=== PATIENT | female | born 1990 | race American Indian/Alaskan Native ===

== ENCOUNTER 2016-12-31 15:08 | Emergency (ER) | payer OTHER ==
[2016-12-31 15:16] VITALS: BP 107/64
--- NOTE | 2016-12-31 15:22 | Emergency Department Report ---
Entered by JUAN GANDHI, acting as scribe for DIMITRIOS SERNA NP. Chief Complaint: Skin/Abscess/Foreign Body Stated Complaint: SORE ON TAILBONE Time Seen by Provider: 12/31/16 15:13 - HPI History of Present Illness: 26 y/o female presents with boil on her sacral region that she noticed about 4 days ago. LMP was about 3-4 weeks ago per pt. Sx include mild drainage from area. - ROS Review of Systems: +boil to sacral region +mild drainage - Exam Vital Signs: Vital Signs 12/31/16 15:13 Temperature 97.8 F Pulse Rate 71 Respiratory 16 Rate Blood Pressure 107/64 O2 Sat by Pulse 100 Oximetry Physical Exam: a and o x4, oriented with a steady gait MSE screening note: Focused history and physical exam performed. Due to findings the following was ordered: lab ED Disposition for MSE Condition: Stable This documentation as recorded by the scribeOKSANA RYAN,accurately reflects the service I personally performed and the decisions made by DAPHNE mcclain TRACY M , CHRISTINA.
[2016-12-31] MEDS ORDERED: BOOSTRIX IM ONE (20:47)
[2016-12-31] MEDS ORDERED: MOTRIN PO ONE (20:47)
--- NOTE | 2016-12-31 20:49 | Emergency Department Report ---
- General Chief complaint: Skin/Abscess/Foreign Body Stated complaint: SORE ON TAILBONE Time Seen by Provider: 12/31/16 15:13 Source: patient Mode of arrival: Ambulatory Limitations: No Limitations - History of Present Illness Initial comments: This is a 26-year-old female nontoxic, well nourished in appearance, no acute signs of distress the best the ED complaining of boil to the upper buttock region 4 days. Patient stated the boil has been draining with pus the past 2 days. Patient denies any numbness, tingling, chest pain, fever, chills, headache, stiff neck, nausea or vomiting. Denies past medical history or drug allergies. MD complaint: abscess/boil -: Gradual, days(s) (4) Tetanus Up to Date: unsure Location: buttocks Severity: mild Severity scale (0 -10): 8 Quality: aching Consistency: constant Context: none Associated symptoms: denies other symptoms - Related Data Previous Rx's Medication Instructions Recorded Last Taken Type Amoxicillin/K Clav Tab [Augmentin 1 tab PO Q12HR #14 tab 12/31/16 Unknown Rx 875 mg] Ibuprofen [Motrin 600 MG tab] 600 mg PO Q8H PRN #30 tablet 12/31/16 Unknown Rx Allergies Allergy/AdvReac Type Severity Reaction Status Date / Time No Known Allergies Allergy Verified 12/31/16 15:16 Abscess Boil HPI - HPI Chief Complaint: Skin/Abscess/Foreign Body Stated Complaint: SORE ON TAILBONE Time Seen by Provider: 12/31/16 15:13 Home Medications: Previous Rx's Medication Instructions Recorded Last Taken Type Amoxicillin/K Clav Tab [Augmentin 1 tab PO Q12HR #14 tab 12/31/16 Unknown Rx 875 mg] Ibuprofen [Motrin 600 MG tab] 600 mg PO Q8H PRN #30 tablet 12/31/16 Unknown Rx Allergies/Adverse Reactions: Allergies Allergy/AdvReac Type Severity Reaction Status Date / Time No Known Allergies Allergy Verified 12/31/16 15:16 ED Review of Systems ROS: Stated complaint: SORE ON TAILBONE Other details as noted in HPI Constitutional: denies: chills, fever Eyes: denies: eye pain, eye discharge, vision change ENT: denies: ear pain, throat pain Respiratory: denies: cough, shortness of breath, wheezing Cardiovascular: denies: chest pain, palpitations Endocrine: no symptoms reported Gastrointestinal: denies: abdominal pain, nausea, diarrhea Genitourinary: denies: urgency, dysuria, discharge Musculoskeletal: denies: back pain, joint swelling, arthralgia Skin: denies: rash, lesions Neurological: denies: headache, weakness, paresthesias Psychiatric: denies: anxiety, depression Hematological/Lymphatic: denies: easy bleeding, easy bruising ED Past Medical Hx - Past Medical History Previous Medical History?: No - Surgical History Past Surgical History?: No - Social History Smoking Status: Current Some Day Smoker Substance Use Type: None - Medications Home Medications: Home Medications Medication Instructions Recorded Confirmed Last Taken Type Amoxicillin/K Clav Tab [Augmentin 1 tab PO Q12HR #14 tab 12/31/16 Unknown Rx 875 mg] Ibuprofen [Motrin 600 MG tab] 600 mg PO Q8H PRN #30 tablet 12/31/16 Unknown Rx ED Physical Exam - General Limitations: No Limitations General appearance: alert, in no apparent distress - Head Head exam: Present: atraumatic, normocephalic, normal inspection - Eye Eye exam: Present: normal appearance, PERRL, EOMI. Absent: scleral icterus, conjunctival injection, nystagmus, periorbital swelling, periorbital tenderness Pupils: Present: normal accommodation - ENT ENT exam: Present: normal exam, normal orophraynx, mucous membranes moist, TM's normal bilaterally, normal external ear exam - Neck Neck exam: Present: normal inspection, full ROM. Absent: tenderness, meningismus, lymphadenopathy, thyromegaly - Respiratory Respiratory exam: Present: normal lung sounds bilaterally. Absent: respiratory distress, wheezes, rales, rhonchi, stridor, chest wall tenderness, accessory muscle use, decreased breath sounds, prolonged expiratory - Cardiovascular Cardiovascular Exam: Present: regular rate, normal rhythm, normal heart sounds. Absent: bradycardia, tachycardia, irregular rhythm, systolic murmur, diastolic murmur, rubs, gallop - GI/Abdominal GI/Abdominal exam: Present: soft, normal bowel sounds. Absent: distended, tenderness, guarding, rebound, rigid, diminished bowel sounds - Rectal Rectal exam: Present: deferred - Extremities Exam Extremities exam: Present: normal inspection, full ROM, normal capillary refill. Absent: tenderness, pedal edema, joint swelling, calf tenderness - Back Exam Back exam: Present: normal inspection, full ROM. Absent: tenderness, CVA tenderness (R), CVA tenderness (L), muscle spasm, paraspinal tenderness, vertebral tenderness, rash noted - Neurological Exam Neurological exam: Present: alert, oriented X3, CN II-XII intact, normal gait, reflexes normal - Psychiatric Psychiatric exam: Present: normal affect, normal mood - Skin Skin exam: Present: warm, dry, intact, normal color. Absent: rash - Other Other exam information: 1 cm boil with pus and drainage noted. No induration noted. Nonfluctuant. Tender to touch. Warm to touch. Erythema. ED Course Vital Signs 12/31/16 15:13 Temperature 97.8 F Pulse Rate 71 Respiratory 16 Rate Blood Pressure 107/64 O2 Sat by Pulse 100 Oximetry - Reevaluation(s) Reevaluation #1: 12/31/16 20:49 patient is talkative and full sentences with no signs of distress. ED Medical Decision Making - Medical Decision Making 26-year-old female that presents with cellulitis to the buttock region. There is a 1 cm boil that is draining with purulent drainage. There is no induration or abscess formation noted. Patient be treated with Augmentin at discharge. Patient was instructed that follow up with a primary care doctor in 3-5 days and this may develop into an abscess and if the sinus symptoms of increased swelling, redness, or worsening symptoms return to emergency room as soon as possible. At time time of discharge, the patient does not seem toxic or ill in appearance. No acute signs of distress noted. Patient agrees to discharge treatment plan of care. No further questions noted by the patient. Critical care attestation.: If time is entered above; I have spent that time in minutes in the direct care of this critically ill patient, excluding procedure time. ED Disposition Clinical Impression: Boil of buttock Cellulitis Qualifiers: Site of cellulitis: buttock Qualified Code(s): L03.317 - Cellulitis of buttock Disposition: TO HOME OR SELFCARE Is pt being admited?: No Does the pt Need Aspirin: No Condition: Stable Instructions: Amoxicillin/Clavulanate Potassium (By mouth), Ibuprofen (By mouth ), Cellulitis (ED) Additional Instructions: follow up with a primary care doctor in 3-5 days and this may develop into an abscess and if the signs and symptoms of increased swelling, redness, or worsening symptoms return to emergency room as soon as possible. Take full course of antibiotics that was prescribed. Prescriptions: Amoxicillin/K Clav Tab [Augmentin 875 mg] 1 tab PO Q12HR #14 tab Ibuprofen [Motrin 600 MG tab] 600 mg PO Q8H PRN #30 tablet PRN Reason: Pain Referrals: PRIMARY CAREMD [Primary Care Provider] - 3-5 Days CHRISTOPHER ROMEO MD [Staff Physician] - 3-5 Days [facility] [Outside] - 3-5 Days [facility] [Outside] - 3-5 Days Forms: Work/School Release Form(ED)
== END 2016-12-31 21:28 | disposition home or self-care (01) ==
LOC: ED 15:08
DX: L03.317 Cellulitis of buttock (principal); Z72.0 Tobacco use
CPT/HCPCS: 90471; 90715; 99282